=== PATIENT | male | born 1980 | race Caucasian/White ===

== ENCOUNTER 2021-09-18 17:52 | Emergency (ER) | payer OTHER ==
[~2021-09-18] VITALS: Ht 185.4 cm; Wt 117.9 kg
[~2021-09-18 17:52] MED LIST: METF500 PO
[2021-09-18] MEDS ORDERED: IBU800 MG PO (19:15)
== END 2021-09-18 19:27 | disposition home or self-care (01) ==
LOC: ER 17:52
DX: S43.102A Unspecified dislocation of left acromioclavicular joint, initial encounter (principal); F17.210 Nicotine dependence, cigarettes, uncomplicated; V18.4XXA Pedal cycle driver injured in noncollision transport accident in traffic accident, initial encounter; Z79.84 Long term (current) use of oral hypoglycemic drugs; Z91.013 Allergy to seafood
CPT/HCPCS: 73030; A9270